=== PATIENT | male | born 1960 | race Caucasian/White ===

== ENCOUNTER 2023-05-13 16:45 | Emergency (ER) | payer OTHER | END 2023-05-13 19:00 | disposition home or self-care (01) | LOC: JD.ED 16:45 | DX: S90.01XA Contusion of right ankle, initial encounter (principal); S90.31XA Contusion of right foot, initial encounter; L03.115 Cellulitis of right lower limb | CPT/HCPCS: 93971-26-RT; 93971-RT; 99283 ==